=== PATIENT | male | born 1965 | race Caucasian/White ===

== ENCOUNTER 2017-11-04 05:26 | Emergency (ER) | payer BC ==
[2017-11-04] MEDS ORDERED: NS 0.9% 1000 ML* 1,000 ML IV ONE (05:39)
[2017-11-04] MEDS ORDERED: Morphine INJ* 4 MG/ML 1 ML CARPUJECT IV ONE (05:39)
[2017-11-04] MEDS ORDERED: Metoclopramide IV* 5 MG/ML 2 ML VIAL IV ONE (05:39)
[2017-11-04 06:06] LABS: Urine Appearance Clear; Urine Blood 1+ (Negative); Urine Color Yellow; Urine Ketones Negative (Negative); Urine Protein Negative (Negative); Urine Specific Gravity 1.025 (1.010-1.030); Urine Urobilinogen Negative (Negative)
[2017-11-04] MEDS ORDERED: Morphine VIAL* 4 MG/ML VIAL (1 ml vial) IV ONE (06:06)
[2017-11-04 06:10] LABS: ABS Basophils 0.1 10^3/ul (0-0.2); ABS Eosinophils 0.1 10^3/ul (0-0.6); ABS Lymphocytes 1.5 10^3/ul (1.0-4.8); ABS Monocytes 1.1 10^3/ul (0-0.8); ABS Neutrophils 7.6 10^3/ul (1.5-7.7); ABS Nucleated RBC 0.1 10^3/ul; Eosinophil % 1.3 % (0-6); Hematocrit 47 % (42-52); Hemoglobin 16.4 g/dl (14.0-18.0); Lymphocyte % 14.1 % (25-47); Mean Corpuscular HGB Conc 35 g/dl (31-36); Mean Corpuscular Hemoglobin 31 pg (27-31); Mean Corpuscular Volume 90 fL (80-94); Mean Platelet Volume 7.5 um3 (7.4-10.4); Nucleated Red Blood Cells % 0.5; Platelet Count 194 10^3/ul (150-450); Red Cell Distribution Width 14 % (10.5-15); White Blood Count 10.3 10^3/ul (3.5-10.8)
[2017-11-04 06:31] LABS: EGFR Non-African American 86.7 (>60)
[2017-11-04] MEDS ORDERED: Iohexol 300* (CONTRAST) 10 ML SDV IV ONE (06:34)
--- NOTE | 2017-11-04 06:51 | ED ---
Silvia Franks Elizabeth, scribed for Malka Machado MD on 11/04/17 at 0540 . Abdominal Pain/Male - HPI Summary HPI Summary: This patient is a 52 year old M presenting to [facility] with a chief complaint of LLQ abd pain since 3 days ago The patient denies that the pain radiates. The patient rates the pain 10/10 in severity. Symptoms aggravated by nothing. Symptoms alleviated by nothing. Patient reports vomiting 2 days ago. Patient has hx of diverticulitis. - History of Current Complaint Chief Complaint: EDAbdPain Stated Complaint: ABD PAIN Hx Obtained From: Patient Onset/Duration: Gradual Onset, Lasting Days - 3 days, Still Present Timing: Constant, Lasting Days - 3 days Severity Initially: Moderate Severity Currently: Moderate Pain Intensity: 10 Pain Scale Used: 0-10 Numeric Location: Discrete At: LLQ Radiates: No Aggravating Factor(s): Nothing Alleviating Factor(s): Nothing Associated Signs And Symptoms: Positive: Vomiting - Allergies/Home Medications Allergies/Adverse Reactions: Allergies Allergy/AdvReac Type Severity Reaction Status Date / Time bee venom protein (honey bee) Allergy Anaphylatic Verified 11/04/17 05:40 Shock Home Medications: Home Medications Ropinirole TAB* [Requip TAB*] 1 tab PO QPM 11/04/17 [History Confirmed 11/04/17] PMH/Surg Hx/FS Hx/Imm Hx GI History: Reports: Hx Diverticulosis - diverticulitis Opthamlomology History: Denies: Hx Legally Blind EENT History: Denies: Hx Deafness Infectious Disease History: No Infectious Disease History: Denies: Traveled Outside the [place] in Last 30 Days - Family History Known Family History: Positive: None - Patient denies any relevant FHx Review of Systems Negative: Fever Negative: Epistaxis Positive: Abdominal Pain - in LLQ, Vomiting Negative: Rash Negative: Headache All Other Systems Reviewed And Are Negative: Yes Physical Exam - Summary Physical Exam Summary: VITAL SIGNS: Reviewed. GENERAL: ~Patient is a well-developed and nourished MALE who is lying comfortable in the stretcher. Patient is not in any acute respiratory distress. HEAD AND FACE: No signs of trauma. No ecchymosis, hematomas or skull depressions. No sinus tenderness. EYES: PERRLA, EOMI x 2, No injected conjunctiva, no nystagmus. EARS: Hearing grossly intact. Ear canals and tympanic membranes are within normal limits. MOUTH: Oropharynx within normal limits. NECK: Supple, trachea is midline, no adenopathy, no JVD, no carotid bruit, no c- spine tenderness, neck with full ROM. CHEST: Symmetric, no tenderness at palpation LUNGS: Clear to auscultation bilaterally. No wheezing or crackles. CVS: Regular rate and rhythm, S1 and S2 present, no murmurs or gallops appreciated. ABDOMEN: Abd distended, LLQ tenderness. No signs of distention. No rebound no guarding, and no masses palpated. Bowel sounds are normal. EXTREMITIES: FROM in all major joints, no edema, no cyanosis or clubbing. NEURO: Alert and oriented x 3. No acute neurological deficits. Speech is normal and follows commands. SKIN: Dry and warm Triage Information Reviewed: Yes Vital Signs On Initial Exam: Initial Vitals Temp Pulse Resp BP Pulse Ox 97.6 F 65 18 146/97 96 11/04/17 05:28 11/04/17 05:28 11/04/17 05:28 11/04/17 05:28 11/04/17 05:28 Vital Signs Reviewed: Yes Diagnostics - Vital Signs Vital Signs Temp Pulse Resp BP Pulse Ox 11/04/17 05:28 97.6 F 65 18 146/97 96 - Laboratory Result Diagrams: 11/04/17 06:03 11/04/17 06:03 Lab Statement: Any lab studies that have been ordered have been reviewed, and results considered in the medical decision making process. Abdominal Pain Fem Course/Dx - Course Course Of Treatment: Patient is a 52 y/o M with hx of diverticulitis reporting LLQ abd pain and some vomiting since 3 days ago. Lab results reviewed with patient. In the ED course the patient was given IV fluids, morphine, and Reglan. Patient will be signed out to Dr. Ahuja from Dr. Machado upon physician shift change pending CT Abd/Pelvis. - Diagnoses Provider Diagnoses: Abdominal pain Discharge - Sign-Out/Discharge Documenting (check all that apply): Sign-Out Patient Signing out patient TO: Jarad Ahuja Receiving patient FROM: Malka Machado - Discharge Plan Condition: Stable Discharge Disposition Comment: Sign out to Dr. Ahuja upon shift change pending CT Abd/Pelvis Referrals: No Primary Care Phys,NOPCP [Primary Care Provider] - The documentation as recorded by the Silvia potts Elizabeth accurately reflects the service I personally performed and the decisions made by me, Malka Machado MD.
--- NOTE | 2017-11-04 07:59 | RAD ---
CLINICAL HISTORY: Abdominal pain COMPARISON: 12/04/2009 TECHNIQUE: Multiple contiguous axial CT scans were obtained of the abdomen and pelvis after the administration of intravenous contrast. Coronal and sagittal multiplanar reformations are submitted for review. Oral contrast was not administered. Delayed images were obtained through the abdomen. FINDINGS: LUNG BASES: The lung bases are clear. LIVER: The liver is diffusely low in attenuation compared to the spleen. There is a hypervascular lesion of the right lobe of the liver. This can be identified on the previous examination and is similar.. BILE DUCTS: There is no intrahepatic or extrahepatic biliary dilatation. GALLBLADDER: The gallbladder is normal, without pericholecystic inflammatory change. PANCREAS: The pancreas is normal, without mass or ductal dilatation. SPLEEN: Normal in size and appearance. UPPER GI TRACT: Evaluation of the gastrointestinal tract is limited by incomplete gastric distention. The upper GI tract is unremarkable. SMALL BOWEL AND MESENTERY: There is no obstruction. There is omental stranding in the left mid abdomen. COLON: The colon is normal in contour, course, caliber. There is no pericolonic inflammatory change. There are scattered diverticula of the sigmoid colon. There is no appreciable diverticulum in close relationship to the area of omental inflammatory change. ADRENALS: Normal bilaterally. KIDNEYS: There is an exophytic lesion of the midpole of the left kidney posteriorly. This is hypoattenuation, measuring 50 Hounsfield units. This has developed from the previous examination. There is no appreciable enhancement. There is no hydronephrosis or nephrolithiasis. BLADDER: The bladder is smooth in contour. PELVIC ORGANS: The prostate gland is normal. The seminal vesicles are symmetric. AORTA: There is mild calcific atherosclerotic disease of the abdominal aorta and its branches, without aneurysmal dilatation IVC: Unremarkable LYMPH NODES: There is no lymphadenopathy by size criteria. ABDOMINAL WALL: There is no evidence for abdominal wall hernia. BONES AND SOFT TISSUES: There are mild diffuse degenerative changes. OTHER: None IMPRESSION: 1. THERE IS INFLAMMATORY CHANGE OF THE OMENTUM IN THE LEFT HEMIABDOMEN. THE APPEARANCE IS SUGGESTIVE OF AN AREA OF OMENTAL NECROSIS. THE DIFFERENTIAL INCLUDES EPIPLOIC APPENDAGITIS. DIVERTICULITIS IS ALSO WITHIN THE DIFFERENTIAL; HOWEVER, THERE ARE NO APPRECIABLE DIVERTICULA IN CLOSE RELATIONSHIP TO THE AREA OF INFLAMMATORY CHANGE. THERE ARE DIVERTICULA NOTED MORE DISTALLY WITHIN THE COLON, WITHOUT ASSOCIATED PERICOLONIC INFLAMMATORY CHANGE. 2. THERE IS A HIGH ATTENUATION EXOPHYTIC LESION OF THE MIDPOLE OF LEFT KIDNEY. THIS MAY REPRESENT A COMPLEX CYST VERSUS A SOLID LESION. RECOMMEND CONSIDERATION OF FURTHER EVALUATION WITH ULTRASOUND OF THE KIDNEYS IN THE NONACUTE SETTING TO EVALUATE THE CYSTIC VERSUS SOLID CHARACTERISTICS OF THIS LESION. IF SOLID, THE DIFFERENTIAL INCLUDES RENAL PARENCHYMAL NEOPLASM. 3. STABLE HEPATIC HEMANGIOMA..
--- NOTE | 2017-11-04 10:15 | ED ---
Cliff Franks Simon, scribed for Jarad Ahuja MD on 11/04/17 at 1015 . Progress - Progress Note Progress Note: This patient was signed out from Dr. Machado, pending disposition, awaiting CT A/ P. CT A/P reveals 1) THERE IS INFLAMMATORY CHANGE OF THE OMENTUM IN THE LEFT HEMIABDOMEN. THE APPEARANCE IS SUGGESTIVE OF AN AREA OF OMENTAL NECROSIS. THE DIFFERENTIAL INCLUDES EPIPLOIC APPENDAGITIS. DIVERTICULITIS IS ALSO WITHIN THE DIFFERENTIAL; HOWEVER, THERE ARE NO APPRECIABLE DIVERTICULA IN CLOSE RELATIONSHIP TO THE AREA OF INFLAMMATORY CHANGE. THERE ARE DIVERTICULA NOTED MORE DISTALLY WITHIN THE COLON, WITHOUT ASSOCIATED PERICOLONIC INFLAMMATORY CHANGE. 2. THERE IS A HIGH ATTENUATION EXOPHYTIC LESION OF THE MIDPOLE OF LEFT KIDNEY. THIS MAYREPRESENT A COMPLEX CYST VERSUS A SOLID LESION. RECOMMEND CONSIDERATION OF FURTHER EVALUATION WITH ULTRASOUND OF THE KIDNEYS IN THE NONACUTE SETTING TO EVALUATE THE CYSTIC VERSUS SOLID CHARACTERISTICS OF THIS LESION. IF SOLID, THE DIFFERENTIAL INCLUDES RENAL PARENCHYMAL NEOPLASM. 3. STABLE HEPATIC HEMANGIOMA. The patients condition is _stable and will be _discharged to home with Dx of _. Re-Evaluation - Re-Evaluation First Eval Re-Evaluation Time: 09:06 Change: Improved Comment: Discussed discharge, Pt ready to leave, pain medicine has helped Course/Dx - Course Course Of Treatment: Mr. Nevarez' CT scan was read as epiploic appendagitis by radiology. I discussed this result with Mr. Nevarez. I am treating him symptomatically and recommending F/U if not improving. We don't have D/C instructions for EA therefore I gave him instructions for mesenteric adenitis and a handout from [employer] on EA. - Diagnoses Provider Diagnoses: Abdominal pain, Epiploic appendagitis Discharge - Sign-Out/Discharge Documenting (check all that apply): Discharge/Admit/Transfer - discharge - Discharge Plan Condition: Stable Disposition: HOME Prescriptions: traMADol TAB* [Ultram*] 50 mg PO Q6HR PRN #20 tab MDD 4 PRN Reason: Pain Patient Education Materials: Mesenteric Adenitis (ED) Forms: *Work Release Referrals: [facility] PHYSICIAN REFERRAL [Outside] - 2 Days No Primary Care Phys,NOPCP [Primary Care Provider] - Additional Instructions: RETURN TO EMERGENCY DEPARTMENT FOR ANY CHANGING OR WORSENING SYMPTOMS. - Billing Disposition and Condition Condition: STABLE Disposition: Home The documentation as recorded by the Cliff potts Simon accurately reflects the service I personally performed and the decisions made by me, Jarad Ahuja MD.
[2017-11-04 10:45] VITALS: BP 156/93
== END 2017-11-04 10:44 | disposition home or self-care (01) ==
LOC: ED 05:26
DX: K63.89 Other specified diseases of intestine (principal); R10.9 Unspecified abdominal pain; R11.10 Vomiting, unspecified
CPT/HCPCS: 36415; 74177; 80053; 81003; 81015; 82150; 83605; 83690; 83735; 85025; 86140; 96374; 96375; 99283; J2270; J2765; Q9967

== ENCOUNTER → 2018-06-21 09:21 | Day surgery (SDC) | payer BC ==
--- NOTE | 2018-06-15 15:48 | HP ---
HISTORY AND PHYSICAL: DATE OF ADMISSION/SURGERY: 06/21/18 He is entering [facility], 06/21/18, for a left knee arthroscopic surgery. CHIEF COMPLAINT: Left knee pain. HISTORY OF PRESENT ILLNESS: He has had years of difficulty with his left knee including pain, clicking, catching and locking symptoms. He works in [employer] care at [employer]. He is very active. Recent x-rays have shown knee arthritis diffuse and a recent MRI scan showed meniscal tearing medial and lateral in the left knee. The patient is interested in less knee discomfort if possible and the left knee arthroscopic surgery was therefore recommended. PAST MEDICAL HISTORY: No history of heart attack, no history of chest pain. The patient is able to walk up 2 flights of stairs without chest pain, without shortness of breath. He has diverticulosis. No bleeding tendencies. No cancers. No diabetes. No hypertension. PAST SURGICAL HISTORY: Right shoulder repair, left biceps repair. The left knee had arthroscopic surgery many years ago. MEDICATIONS: He takes multivitamins each day and ReQuip for restless legs syndrome. ALLERGIES: He is allergic to BEE STINGS. SOCIAL HISTORY: Smokes 1 pack per day, drinks a 12-pack of beer per week.. 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 He states that his walking distance is unlimited, but he does put up with a lot of left knee discomfort. PHYSICAL EXAMINATION GENERAL: Slightly overweight, not acutely distressed, slight limp on the left. HEENT: The head is NC/AT. LUNGS: Clear bilaterally. HEART: Regular. S1, S2 normal. No murmurs or gallops. ABDOMEN: Round, soft, nontender. No organomegaly. EXTREMITIES: The left knee shows extension -5 degrees, flexion 110, the posterior tibial pulses 2+ on the left. The thigh and calf are soft. The left knee has tenderness of the patellar tendon, the medial joint and the lateral joint. NEUROLOGIC: The cranial nerves are grossly intact. DIAGNOSTIC STUDIES: X-rays, left knee, tricompartmental arthritis. MRI scan, meniscal tear in medial and lateral left knee. IMPRESSION: Left knee meniscal tears. PLAN/RECOMMENDATIONS: Left knee arthroscopic surgery. Goals, risks and complications have been discussed with the patient. He has acknowledged complications and he has acknowledged that with arthroscopic surgery in this type of knee, expected gains may be limited. [id number]/[facility] #: [id number] MELODY
[~2018-06-21 09:21] MED LIST: Acetaminophen TAB* 325 MG PO PRN; Buffered Lidocaine 1% SYRIN* 1 ML/SYRINGE INTRADERM ONE; Bupivacaine 0.5% SDV PF* 30ML VIAL ONE; Bupivacaine 0.5% W/EPI SDV* 30 ML VIAL ONE; Chloroprocaine 2%* 20 ML VIAL ONE; DiMENhydriNATE IV* 50 MG/ML VIAL IV PUSH PRN; KETAMINE HCL* 50 MG/ML 10 ML VIAL ONE; Lactated Ringers 1000 ML Bag* 1,000 ML IV SCH; Lidocaine 2% PF * 5 ML VIAL ONE; Metoclopramide IV* 5 MG/ML 2 ML VIAL IV PRN; Midazolam* 1 MG/ML 2 ML VIAL (2 MG) ONE; Naloxone* 0.4 MG/ML 1 ML VIAL IV PRN; Propofol* 10 MG/ML 20 ML BTL ONE; Propofol* 500 MG/50 ML BTL ONE; ceFAZolin 1 GM ADVAN(*) 1 GM ADDV.VIAL IVPB ONE; ceFAZolin 2 GM PREMIX in ORs 2 GM/50 ML BAG IVPB ONE; fentaNYL* 50 MCG/ML 2 ML VIAL (100 MCG VIAL) IV PRN; fentaNYL* 50 MCG/ML 2 ML VIAL (100 MCG VIAL) ONE; oxyCODONE TAB* 5 MG TAB ONE; oxyCODONE TAB* 5 MG TAB PO PRN
[2018-06-21 14:10] VITALS: BP 151/96
--- NOTE | 2018-06-21 20:33 | OP ---
DATE OF OPERATION: 06/21/18 - [facility] DATE OF : 67 SURGICAL CARE: Left knee arthroscopic surgery. SURGEON: Eliud Luna MD [employer] MACHINE OPERATOR: SHELIA Judd, players assistant. ANESTHESIOLOGIST: Dr. Ramirez. ANESTHESIA: Spinal and IV sedation. PRE-OP DIAGNOSES: Left knee meniscal tears and arthritis. POST-OP DIAGNOSES: Left knee meniscal tears and arthritis. OPERATIVE PROCEDURE: Left knee partial medial and lateral meniscectomies and chondroplasty of the medial femoral condyle. INDICATION: Meniscal tears. COMPLICATIONS: There were no complications. DRAINS: There were no drains. TOURNIQUET: Tourniquet control was utilized on the left leg. CONDITION: Stable to recovery room. DESCRIPTION OF PROCEDURE: The patient was brought to the operating room and placed on the operating room table in the supine position. Following the administration of the spinal anesthetic done in the sitting position, he was returned to the supine position. The left proximal thigh was wrapped with a tourniquet. The left leg was given a preliminary chlorhexidine prep and then a final ChloraPrep from the tourniquet to the foot. After prepping, draping, and sealing off, we did our universal protocol time-out confirming [place] Nevarez and the plan for left knee arthroscopic surgery. We all agreed and we proceeded. The leg was exsanguinated. The tourniquet on the thigh elevated to 275. The knee was set up for arthroscopy with the arthroscope lateral to the patellar tendon, probe and operating instruments medial to the patellar tendon and an inflow catheter superomedial to the patella. The initial survey of the joint showed that the patella and trochlea had yellowing and some thinning, but overall satisfactory condition. There was synovitis around the patella. There was synovitis in the medial and lateral gutters. The ACL had been torn years ago. The PCL was inspected briefly and appeared satisfactory. The medial femoral condyle had loose flaps of cartilage on it. I had photographed one of those and the loose flaps of cartilage on the medial femoral condyle were excised. The medial meniscus was torn mid and posteriorly and anteriorly there was an old bulbous flap that I excised. Now, we worked posteriorly with the knee on a valgus stress between 0 and 20 degrees of flexion and utilized the shaver and the baskets. The lateral meniscus was markedly torn and the lateral joint compartment had a lot of [id number] arthritis. There was also arthritis between the tibial spines and the intercondylar notch was seen with the knee in flexion. The lateral meniscus was removed entirely anteriorly and mid it was all torn and then some posterior flaps were also excised. Once the surgical care was completed, final photographs were obtained of the medial and lateral compartments. The knee was irrigated with another 6 L of saline irrigation solution, then emptied, then instilled with Marcaine 0.5% with epinephrine 30 mL. The skin portals were closed with interrupted 3-0 Surgipro and a dressing was applied after washing and drying of Betadine-soaked release, sterile gauze, sterile Webril, cryotherapy cuff, and ABD pads and a 6-inch Wes bandage loosely applied. The patient was returned to the recovery room in stable and satisfactory condition, having tolerated the procedure very well. [id number]/[facility] #: [id number] MELODY
== END | disposition home or self-care (01) ==
LOC: OR 09:21
PROVIDERS: ATTEND Orthopaedic Surgery
DX: M23.204 Derangement of unspecified medial meniscus due to old tear or injury, left knee (principal); M23.201 Derangement of unspecified lateral meniscus due to old tear or injury, left knee; M17.12 Unilateral primary osteoarthritis, left knee; Z72.0 Tobacco use; G25.81 Restless legs syndrome
CPT/HCPCS: A9270-GY; J0690; J2250; J2400; J2704; J3010